=== PATIENT | female | born 1940 | race Caucasian/White ===

== ENCOUNTER 2023-09-06 13:00 | Emergency (ER) | payer BC, MEDICARE ==
--- NOTE | 2023-09-06 13:40 | ED ---
General Adult HPI - General Chief complaint: Recheck/Abnormal Lab/Rx Stated complaint: Agitation Time Seen by Provider: 09/06/23 13:11 Source: patient, EMS, RN notes reviewed, old records reviewed Mode of arrival: EMS Limitations: altered mental status - History of Present Illness Initial comments: 83-year-old female with history of dementia and Parkinson's presenting with agitation and report of being uncooperative. Patient recently moved to this facility and only came with 2 medication bottles even though she is prescribed multiple medications. Patient was sent from her new residence for evaluation and request for these medications. Family as well as the facility are attempting to obtain a primary care provider but they have been unable to do so. - Related Data Home Medications Medication Instructions Recorded Confirmed Calcium Carbonate [Tums] 500 mg PO BID PRN 09/06/23 09/06/23 Calcium Carbonate/Vitamin D3 1 tab PO DAILY 09/06/23 09/06/23 [Calcium 500 mg-Vit D3 5 mcg (200 Unit)] Desvenlafaxine Succinate [Pristiq 25 mg PO DAILY 09/06/23 09/06/23 ER] Desvenlafaxine [Pristiq ER] 100 mg PO DAILY 09/06/23 09/06/23 Glucosamine/Chondr Xiong A Sod [Osteo 1 tab PO DAILY 09/06/23 09/06/23 Bi-Flex Caplet] Levothyroxine Sodium [Synthroid] 100 mcg PO DAILY 09/06/23 09/06/23 Multivitamins, Thera [Multivitamin 1 tab PO DAILY 09/06/23 09/06/23 (formulary)] Mv-Mn/Om3/Dha/Epa/Fish/Lut/Dana 1 cap PO DAILY 09/06/23 09/06/23 [Ocuvite Adult 50 Plus Softgel] Previous Rx's Medication Instructions Recorded Desvenlafaxine Succinate [Pristiq 25 mg PO DAILY 30 Days #30 tab 09/06/23 ER] Desvenlafaxine Succinate [Pristiq] 100 mg PO DAILY 30 Days #30 tab 09/06/23 LORazepam [Ativan] 0.5 mg PO BID PRN 10 Days #20 tab 09/06/23 Levothyroxine Sodium 100 mcg PO DAILY 30 Days #30 tab 09/06/23 Allergies Allergy/AdvReac Type Severity Reaction Status Date / Time No Known Allergies Allergy Verified 09/06/23 13:08 Review of Systems ROS Statement: Those systems with pertinent positive or pertinent negative responses have been documented in the HPI. ROS Other: All systems not noted in ROS Statement are negative. Past Medical History Smoking Status: Former smoker Past Alcohol Use History: None Reported Past Drug Use History: None Reported General Exam General appearance: alert, in no apparent distress Head exam: Present: atraumatic, normocephalic Eye exam: Present: normal appearance, PERRL ENT exam: Present: normal exam Neck exam: Present: normal inspection Respiratory exam: Present: normal lung sounds bilaterally. Absent: respiratory distress, wheezes Cardiovascular Exam: Present: regular rate, normal rhythm GI/Abdominal exam: Present: soft. Absent: distended, tenderness, guarding Neurological exam: Present: alert. Absent: motor sensory deficit Psychiatric exam: Present: normal affect, normal mood Skin exam: Present: warm, dry, intact. Absent: cyanosis, diaphoretic Course Vital Signs 09/06/23 13:03 Temperature 98.5 F Pulse Rate 110 H Respiratory 18 Rate Blood Pressure 145/96 O2 Sat by Pulse 97 Oximetry Medical Decision Making - Medical Decision Making Was pt. sent in by a medical professional or institution (, PA, DENTAL EQUIPMENT REPAIRER, urgent care, hospital, or shelter...) When possible be specific @ -No Did you speak to anyone other than the patient for history (EMS, parent, family, police, friend...)? What history was obtained from this source @ -No Did you review nursing and triage notes (agree or disagree)? Why? @ -I reviewed and agree with nursing and triage notes Were old charts reviewed (outside hosp., previous admission, EMS record, old EKG, old radiological studies, urgent care reports/EKG's, shelter records)? Report findings @ -No old charts were reviewed Differential Diagnosis agitation, worsening dementia, medication refill EKG interpreted by me (3pts min.). @ -As above X-rays interpreted by me (1pt min.). @ -None done CT interpreted by me (1pt min.). @ -None done U/S interpreted by me (1pt. min.). @ -None done What testing was considered but not performed or refused? (CT, X-rays, U/S, labs)? Why? @ -None What meds were considered but not given or refused? Why? @ -None Did you discuss the management of the patient with other professionals (professionals i.e. , PA, DENTAL EQUIPMENT REPAIRER, lab, RT, psych nurse, social media content manager, polysilicon preparation worker, teacher, animal control officer, pillowcase maker)? Give summary @ -No Was smoking cessation discussed for >3mins.? @ -No Was critical care preformed (if so, how long)? @ -No Were there social determinants of health that impacted care today? How? (Homelessness, low income, unemployed, alcoholism, drug addiction, transportation, low edu. Level, literacy, decrease access to med. care, nursing home, rehab)? @ -No Was there de-escalation of care discussed even if they declined (Discuss DNR or withdrawal of care, Hospice)? DNR status @ -No What co-morbidities impacted this encounter? (DM, HTN, Smoking, COPD, CAD, Cancer, CVA, ARF, Chemo, Hep., AIDS, mental health diagnosis, sleep apnea, morbid obesity)? @ -Patient with dementia and Parkinson's. Was patient admitted / discharged? Hospital course, mention meds given and route, prescriptions, significant lab abnormalities, going to OR and other pertinent info. @ -[Medication was reviewed and given the current prescription history available at the time of my evaluation it does not seem as though her Sinemet has been filled in approximately 1 year. This patient was evaluated on 05 September and complete details of medication was not available. I do feel that the home where she resides should confirm medications tomorrow with primary care. For today her thyroid medication, Pristiq, and Ativan have been refilled. Undiagnosed new problem with uncertain prognosis? @ -No Drug Therapy requiring intensive monitoring for toxicity (Heparin, Nitro, Insulin, Cardizem)? @ -No Were any procedures done? @ -No Diagnosis/symptom? @ -Medication refill Acute, or Chronic, or Acute on Chronic? @ -Default Uncomplicated (without systemic symptoms) or Complicated (systemic symptoms)? @ -Default Side effects of treatment? @ -No Exacerbation, Progression, or Severe Exacerbation? @ -No Poses a threat to life or bodily function? How? (Chest pain, [place], [place], pneumonia, PE, COPD, DKA, ARF, appy, cholecystitis, CVA, Diverticulitis, Homicidal, Suicidal, threat to staff... and all critical care pts) @ -No Disposition Clinical Impression: Encounter for medication refill Disposition: HOME SELF-CARE Condition: Fair Instructions (If sedation given, give patient instructions): Medicine Refill (ED) Prescriptions: LORazepam [Ativan] 0.5 mg PO BID PRN 10 Days #20 tab PRN Reason: Anxiety Levothyroxine Sodium 100 mcg PO DAILY 30 Days #30 tab Desvenlafaxine Succinate [Pristiq] 100 mg PO DAILY 30 Days #30 tab Desvenlafaxine Succinate [Pristiq ER] 25 mg PO DAILY 30 Days #30 tab Is patient prescribed a controlled substance at d/c from ED?: No Referrals: None,Stated [Primary Care Provider] - 1-2 days To Rivera DO [REFERRING] - 1-2 days Time of Disposition: 14:24
[2023-09-06] MEDS: LORazepam 0.5 MG TAB PO STA (14:32)
[2023-09-06 14:36] VITALS: BP 137/96; PULSE 96; RESP 16; TEMP 98.4
== END 2023-09-06 15:04 | disposition home or self-care (01) ==
LOC: EC 13:00
DX: Z76.0 Encounter for issue of repeat prescription (principal); Z87.891 Personal history of nicotine dependence
CPT/HCPCS: 99284